=== PATIENT | male | born 1965 | race Caucasian/White ===

== ENCOUNTER 2020-06-15 22:58 | Emergency (ER) | payer OTHER ==
[~2020-06-15] VITALS: Ht 177.8 cm; Wt 98.9 kg
[~2020-06-15 22:58] MED LIST: HYDROCODONE
[2020-06-15] MEDS ORDERED: XARELTO2.5 MG PO (23:02)
[2020-06-15] MEDS ORDERED: KEFLEX500 M1 PO (23:09)
[2020-06-15] MEDS ORDERED: SPIRONOLACTONE100 M1 PO (23:10)
[2020-06-15] MEDS ORDERED: PROGESTERONE100 MG PO (23:10)
[2020-06-15 23:24] LABS: BASOPHILS 0.6 % (0.0-2.0); EOSINOPHILS 0.6 % (0.0-3.0); HEMATOCRIT 48.5 % (42.0-52.0); HEMOGLOBIN 16.1 gm/dL (14.0-18.0); LYMPHOCYTES 10.8 % (24.0-44.0); MCH 30.2 pg (26.0-34.0); MCHC 33.1 g/dL (28.0-37.0); MCV 91.2 fL (80.0-100.0); MONOCYTES 5.6 % (1.0-8.0); PLATELET COUNT 216 thou/uL (150-400); POLYS 82.4 % (36.0-66.0); RBC 5.32 mil/uL (4.50-6.00); RDW 14.5 % (10.5-14.5); WBC 14.6 thou/uL (4.0-11.0)
[2020-06-15 23:27] LABS: ANION GAP 15 mmol/L (7-16); BUN 12 mg/dL (7-18); CALCIUM 9.2 mg/dL (8.5-10.1); CHLORIDE 104 mmol/L (98-107); CO2 21 mmol/L (21-32); CREATININE 1.1 mg/dL (0.7-1.3); GLUCOSE 163 mg/dL (74-106); POTASSIUM 3.7 mmol/L (3.5-5.1); SODIUM 140 mmol/L (136-145)
[2020-06-15 23:38] LABS: ALBUMIN 3.7 g/dL (3.4-5.0); LIPASE 88 U/L (73-393); SGOT 17 U/L (15-37); SGPT 23 U/L (30-65); TOTAL BILIRUBIN 0.2 mg/dL (0.2-1.0); TOTAL PROTEIN 7.8 g/dL (6.4-8.2); TROPONIN-I <0.06 ng/mL (<0.06)
[2020-06-16 00:19] VITALS: BP 141/77
--- NOTE | 2020-06-16 12:23 | EKG ---
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
== END 2020-06-16 00:29 | disposition home or self-care (01) ==
LOC: ER 22:58
PROVIDERS: Emergency Medicine
DX: R07.89 Other chest pain (principal); I48.91 Unspecified atrial fibrillation; Z90.89 Acquired absence of other organs; Z79.899 Other long term (current) drug therapy; Z88.1 Allergy status to other antibiotic agents

== ENCOUNTER 2020-07-14 21:59 | Emergency (ER) | payer OTHER ==
[~2020-07-14] VITALS: Ht 177.8 cm; Wt 90.7 kg
[~2020-07-14 21:59] MED LIST changes: +KEFLEX500 M1 PO; +PROGESTERONE100 MG PO; +SPIRONOLACTONE100 M1 PO; +XARELTO2.5 MG PO
[2020-07-14 22:50] LABS: ABSOLUTE NEUTROPHILS 10.4 thou/uL (1.4-8.2); BASOPHILS 0.2 % (0.0-2.0); EOSINOPHILS 0.5 % (0.0-3.0); HEMATOCRIT 39.7 % (42.0-52.0); HEMOGLOBIN 13.8 gm/dL (14.0-18.0); LYMPHOCYTES 12.2 % (24.0-44.0); MCH 31.2 pg (26.0-34.0); MCHC 34.6 g/dL (28.0-37.0); MCV 90.1 fL (80.0-100.0); MONOCYTES 6.5 % (1.0-8.0); PLATELET COUNT 208 thou/uL (150-400); POLYS 80.6 % (36.0-66.0); RBC 4.41 mil/uL (4.50-6.00); RDW 14.8 % (10.5-14.5); WBC 12.9 thou/uL (4.0-11.0)
[2020-07-14 22:51] LABS: ANION GAP 11 mmol/L (7-16); BUN 18 mg/dL (7-18); CALCIUM 8.3 mg/dL (8.5-10.1); CHLORIDE 108 mmol/L (98-107); CO2 22 mmol/L (21-32); CREATININE 1.2 mg/dL (0.7-1.3); GLUCOSE 106 mg/dL (74-106); POTASSIUM 3.9 mmol/L (3.5-5.1); SODIUM 141 mmol/L (136-145)
[2020-07-14 23:01] LABS: ALBUMIN 2.9 g/dL (3.4-5.0); LIPASE 87 U/L (73-393); SGOT 18 U/L (15-37); SGPT 24 U/L (16-63); TOTAL BILIRUBIN 0.1 mg/dL (0.2-1.0); TOTAL PROTEIN 6.6 g/dL (6.4-8.2); TROPONIN-I <0.06 ng/mL (<0.06)
[2020-07-14 23:47] VITALS: BP 128/72
--- NOTE | 2020-07-15 16:52 | EKG ---
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 : 1965 Requested By: Javon Isaacs Order Number: [id number] MD: Ivan Randle Measurements Intervals [place] Rate: 76 P: 23 AR: 115 QRS: 57 QRSD: 89 T: 75 QT: 354 QTc: 399 Interpretive Statements Sinus rhythm Atrial premature complexes Borderline short AR interval Borderline T wave abnormalities Compared to ECG 06/15/2020 23:02:51 No significant changes Electronically Signed On 07-15-2020 16:52:29 CDT by Ivan Randle [email or web address] <ELECTRONICALLY SIGNED> By: Ivan Randle MD, [facility] 07/15/202 01 01 Ivan Randle MD, FACC /EPI
== END 2020-07-14 23:51 | disposition left against medical advice (07) ==
LOC: ER 21:59
PROVIDERS: Emergency Medicine
DX: R07.89 Other chest pain (principal); R42 Dizziness and giddiness; I48.91 Unspecified atrial fibrillation; I25.2 Old myocardial infarction; F17.200 Nicotine dependence, unspecified, uncomplicated; E11.9 Type 2 diabetes mellitus without complications; I10 Essential (primary) hypertension; Z88.1 Allergy status to other antibiotic agents; Z87.442 Personal history of urinary calculi; Z90.89 Acquired absence of other organs; Z79.899 Other long term (current) drug therapy

== ENCOUNTER 2020-07-17 20:33 | Emergency (ER) | payer OTHER ==
[~2020-07-17] VITALS: Ht 177.8 cm; Wt 90.7 kg
[2020-07-17] MEDS ORDERED: PAXIL20 MG PO (20:43)
[2020-07-17 21:20] LABS: ANION GAP 10 mmol/L (7-16); BUN 12 mg/dL (7-18); CALCIUM 9.4 mg/dL (8.5-10.1); CHLORIDE 105 mmol/L (98-107); CO2 26 mmol/L (21-32); CREATININE 1.3 mg/dL (0.7-1.3); GLUCOSE 99 mg/dL (74-106); POTASSIUM 4.3 mmol/L (3.5-5.1); SODIUM 141 mmol/L (136-145)
[2020-07-17 21:22] LABS: ABSOLUTE NEUTROPHILS 8.3 thou/uL (1.4-8.2); BASOPHILS 0.3 % (0.0-2.0); EOSINOPHILS 1.3 % (0.0-3.0); HEMOGLOBIN 15.2 gm/dL (14.0-18.0); LYMPHOCYTES 19.7 % (24.0-44.0); MCH 30.7 pg (26.0-34.0); MCHC 33.8 g/dL (28.0-37.0); MCV 90.8 fL (80.0-100.0); MONOCYTES 8.4 % (1.0-8.0); PLATELET COUNT 249 thou/uL (150-400); POLYS 70.3 % (36.0-66.0); RBC 4.96 mil/uL (4.50-6.00); RDW 14.9 % (10.5-14.5); WBC 11.9 thou/uL (4.0-11.0)
[2020-07-17 21:28] LABS: TROPONIN-I <0.06 ng/mL (<0.06)
[2020-07-17 22:38] LABS: INR 1.1; PROTIME 11.9 Seconds (9.3-11.4)
[2020-07-17] MEDS ORDERED: CYCLOBENZAPRINE5 MG PO (22:56)
[2020-07-17 23:38] VITALS: BP 116/62
--- NOTE | 2020-07-18 09:41 | EKG ---
[address] [address] 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 : 1965 Requested By: Lauren Ventura Order Number: [id number] MD: Ivan Randle Measurements Intervals [place] Rate: 77 P: 12 NV: 110 QRS: 66 QRSD: 98 T: 70 QT: 367 QTc: 416 Interpretive Statements Sinus rhythm Atrial premature complex Borderline short NV interval Borderline T wave abnormalities Compared to ECG 07/14/2020 22:02:57 No significant changes Electronically Signed On 07-18-2020 9:41:43 CDT by Ivan Randle [email or web address] <ELECTRONICALLY SIGNED> By: Ivan Randle MD, [facility] 07/18/20 0941 41 41 Ivan Randle MD, FACC /EPI
== END 2020-07-17 23:30 | disposition home or self-care (01) ==
LOC: ER 20:33
PROVIDERS: Emergency Medicine
DX: M43.6 Torticollis (principal); I48.91 Unspecified atrial fibrillation; I25.2 Old myocardial infarction; J44.9 Chronic obstructive pulmonary disease, unspecified; F17.210 Nicotine dependence, cigarettes, uncomplicated; Z88.1 Allergy status to other antibiotic agents; Z90.89 Acquired absence of other organs; Z79.899 Other long term (current) drug therapy

== ENCOUNTER 2021-01-28 18:38 | Emergency (ER) | payer OTHER ==
[~2021-01-28] VITALS: Ht 177.8 cm; Wt 95.3 kg
[~2021-01-28 18:38] MED LIST changes: +CYCLOBENZAPRINE5 MG PO; +PAXIL20 MG PO
[2021-01-28 19:12] LABS: ABSOLUTE NEUTROPHILS 9.2 thou/uL (1.4-8.2); BASOPHILS 0.5 % (0.0-2.0); EOSINOPHILS 1.4 % (0.0-3.0); HEMATOCRIT 42.3 % (42.0-52.0); HEMOGLOBIN 14.1 gm/dL (14.0-18.0); LYMPHOCYTES 18.5 % (24.0-44.0); MCH 29.4 pg (26.0-34.0); MCHC 33.3 g/dL (28.0-37.0); MCV 88.3 fL (80.0-100.0); MONOCYTES 9.1 % (1.0-8.0); PLATELET COUNT 211 thou/uL (150-400); POLYS 70.5 % (36.0-66.0); RBC 4.79 mil/uL (4.50-6.00); RDW 13.7 % (10.5-14.5)
[2021-01-28 19:19] LABS: CALCIUM 8.8 mg/dL (8.5-10.1); CREATININE 1.3 mg/dL (0.7-1.3); POTASSIUM 4.6 mmol/L (3.5-5.1)
[2021-01-28] MEDS ORDERED: APAP W/CODEINE1 TA2 PO (21:53)
[2021-01-28] MEDS ORDERED: NAPROSYN500 MG PO (21:53)
[2021-01-28 22:30] VITALS: BP 80/56
--- NOTE | 2021-01-30 07:27 | EKG ---
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 : 1965 Requested By: Ricardo Leo Order Number: [id number] MD: David Castro Measurements Intervals [place] Rate: 64 P: 21 [place]: 125 QRS: 56 QRSD: 94 T: 59 QT: 393 QTc: 406 Interpretive Statements Sinus rhythm Borderline T wave abnormalities Compared to ECG 07/17/2020 20:42:42 Atrial premature complex(es) no longer present T-wave abnormality still present Electronically Signed On 01-30-2021 7:26:51 CDT by David Castro [email or web address] <ELECTRONICALLY SIGNED> By: David Castro MD, [facility] 01/30/21 0726 184 [id number] David Castro MD, FACC /EPI
== END 2021-01-28 22:34 | disposition home or self-care (01) ==
LOC: ER 18:38
PROVIDERS: Emergency Medicine
DX: R07.89 Other chest pain (principal); I48.91 Unspecified atrial fibrillation; I25.2 Old myocardial infarction; J44.9 Chronic obstructive pulmonary disease, unspecified; F17.210 Nicotine dependence, cigarettes, uncomplicated; Z79.899 Other long term (current) drug therapy; Z79.891 Long term (current) use of opiate analgesic; Z88.1 Allergy status to other antibiotic agents; Z90.89 Acquired absence of other organs; Z87.442 Personal history of urinary calculi